=== PATIENT | female | born 1975 | race Caucasian/White ===

== ENCOUNTER → 2023-03-23 17:57 | Outpatient (REF) | payer OTHER, SELFPAY | LOC: HWWDC 17:57 | PROVIDERS: ATTENDING PHYSICIAN Obstetrics & Gynecology | DX: Z12.31 Encounter for screening mammogram for malignant neoplasm of breast (principal) | CPT/HCPCS: 77063; 77067 ==

== ENCOUNTER → 2023-07-28 06:27 | Day surgery (SDC) | payer OTHER, SELFPAY | LOC: GI 06:27 | PROVIDERS: ATTENDING PHYSICIAN Internal Medicine Gastroenterology | DX: Z12.11 Encounter for screening for malignant neoplasm of colon (principal); K64.0 First degree hemorrhoids; K62.89 Other specified diseases of anus and rectum; D12.5 Benign neoplasm of sigmoid colon | CPT/HCPCS: 45380; 88305 ==

== ENCOUNTER → 2024-03-26 17:40 | Outpatient (REF) | payer OTHER, SELFPAY | LOC: WDC 17:40 | PROVIDERS: ATTENDING PHYSICIAN Obstetrics & Gynecology | DX: Z12.31 Encounter for screening mammogram for malignant neoplasm of breast (principal) | CPT/HCPCS: 77063; 77067 ==